=== PATIENT | male | born 1955 | race Caucasian/White ===

== ENCOUNTER 2018-10-10 07:50 | Day surgery (SDC) | payer OTHER | END 2018-10-10 11:30 | disposition home or self-care (01) | LOC: AMB-ENDOS 07:50 | DX: K62.1 Rectal polyp (principal) ==

== ENCOUNTER 2021-03-31 18:50 | Emergency (ER) | payer OTHER ==
[~2021-03-31] VITALS: Ht 175.3 cm; Wt 71.7 kg
[2021-03-31] MEDS ORDERED: LISINOPRIL (19:43)
[2021-03-31] MEDS ORDERED: NAPROXEN375 MG PO (21:14)
[2021-03-31] MEDS ORDERED: BACTRIM DS TAB1 EACH PO (21:14)
== END 2021-03-31 21:25 | disposition home or self-care (01) ==
LOC: ER 18:50
DX: S61.422A Laceration with foreign body of left hand, initial encounter (principal); W45.8XXA Other foreign body or object entering through skin, initial encounter; Y93.89 Activity, other specified; Y92.89 Other specified places as the place of occurrence of the external cause; Y99.8 Other external cause status

== ENCOUNTER 2021-04-07 22:00 | Emergency (ER) | payer OTHER ==
[~2021-04-07] VITALS: Ht 175.3 cm; Wt 71.7 kg
[~2021-04-07 22:00] MED LIST: BACTRIM DS TAB1 EACH PO; LISINOPRIL; NAPROXEN375 MG PO
[2021-04-07] MEDS ORDERED: LISINOPRIL20 MG (22:19)
== END 2021-04-07 22:44 | disposition home or self-care (01) ==
LOC: ER 22:00
DX: Z48.02 Encounter for removal of sutures (principal)

== ENCOUNTER 2022-08-26 11:24 | Emergency (ER) | payer OTHER ==
[~2022-08-26] VITALS: Ht 175.3 cm; Wt 72.6 kg
[~2022-08-26 11:24] MED LIST changes: +LISINOPRIL20 MG
== END 2022-08-26 16:44 | disposition home or self-care (01) ==
LOC: ER 11:24
DX: B34.9 Viral infection, unspecified (principal); I10 Essential (primary) hypertension; Z20.822 Contact with and (suspected) exposure to COVID-19

== ENCOUNTER 2022-09-15 16:06 | Emergency (ER) | payer OTHER ==
[~2022-09-15] VITALS: Ht 175.3 cm; Wt 72.6 kg
== END 2022-09-15 21:33 | disposition home or self-care (01) ==
LOC: ER 16:06
DX: K52.9 Noninfective gastroenteritis and colitis, unspecified (principal); A05.9 Bacterial foodborne intoxication, unspecified